=== PATIENT | female | born 2000 | race Caucasian/White ===

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

== ENCOUNTER 2021-04-14 20:27 | Emergency (ER) | payer SELFPAY ==
[2021-04-14 22:02] VITALS: BMI 20.9
[2021-04-14] MEDS ORDERED: IBUPROFEN 400 MG TABLET (FP) PO ONE ×2 (23:30→23:32)
[2021-04-15 01:42] VITALS: TEMP 98.3
[2021-04-15 02:26] VITALS: BP 110/73; PULSE 60
== END 2021-04-15 02:26 | disposition home or self-care (01) ==
LOC: JER 20:27
DX: M94.0 Chondrocostal junction syndrome [Tietze] (principal); R07.9 Chest pain, unspecified
CPT/HCPCS: 71046-TC-FY; 93005; 93010; 99284-25

== ENCOUNTER 2024-01-18 20:53 | Emergency (ER) | payer OTHER ==
[2024-01-18 21:16] VITALS: BP 110/64; PULSE 56; RESP 20; TEMP 98.3; BMI 19.5
[2024-01-18] MEDS ORDERED: FAMOTIDINE 20 MG TABLET ONE (22:39)
[2024-01-18] MEDS ORDERED: MAG HYDROX/AL HYDROX/SIMETH 30 ML UNIT-DOSE CUP ONE (22:39)
[2024-01-18 22:42] LABS: EPI CELLS 23 /uL (0-25.1); HYALINE CASTS 2 /uL (0-3.1); URINE APPEARANCE CLEAR; URINE BACTERIA 1308 /uL (0-1359); URINE BILIRUBIN NEGATIVE (NEGATIVE); URINE COLOR YELLOW; URINE GLUCOSE (UA) NEGATIVE (NEGATIVE); URINE KETONE TRACE (NEGATIVE); URINE LEUK ESTERASE 1+ (NEGATIVE); URINE NITRITE NEGATIVE (NEGATIVE); URINE PROTEIN NEGATIVE (NEGATIVE); URINE RBC 49 /uL (0-23.9); URINE WBC 232 /uL (0-25.8)
[2024-01-18] MEDS: MAG HYDROX/AL HYDROX/SIMETH 30 ML UNIT-DOSE CUP PO ONE (22:42)
[2024-01-18] MEDS: FAMOTIDINE 20 MG TABLET PO ONE (22:42)
[2024-01-18 22:47] LABS: HCG,QUALITATIVE URINE Negative
== END 2024-01-18 23:09 | disposition home or self-care (01) ==
LOC: JER 20:53
DX: K29.70 Gastritis, unspecified, without bleeding (principal); N39.0 Urinary tract infection, site not specified; R10.13 Epigastric pain; K92.0 Hematemesis
CPT/HCPCS: 81003; 84703; 99283-25